=== PATIENT | male | born 1975 | race Caucasian/White ===

== ENCOUNTER 2016-10-07 18:43 | Emergency (ER) | payer OTHER ==
[~2016-10-07 18:43] MED LIST: BECONASE AQ25 GM NS; CEFTIN500 MG PO; CYCLOBENZAPRINE10 M1 PO; DICLOFENAC SODI75 MG PO; FISH OIL1 CAP PO; FLOMAX0.4 MG PO; HUMIBID PO; LIPITOR; LIPITOR10 MG PO; NO MEDS; NORCO 10-325 T1 EACH PO; NORCO 5/325 TAB1 TAB PO; PERCOCET 5-3251 EACH PO; PERCOCET 5/3251 TAB PO; ZOFRAN4 MG PO; [UNRECOGNIZED DRUG - OTHER] PO
== END 2016-10-07 21:53 ==
LOC: EDMED 18:43
PROC: 0HQEXZZ Repair Left Lower Arm Skin, External Approach (ICD-10-PCS; principal; 2016-10-07)
DX: S51.012A Laceration without foreign body of left elbow, initial encounter (principal); S01.112A Laceration without foreign body of left eyelid and periocular area, initial encounter; W21.07XA Struck by softball, initial encounter; Y93.64 Activity, baseball; Y92.830 Public park as the place of occurrence of the external cause; Y99.8 Other external cause status